=== PATIENT | male | born 1985 | race Hispanic/Latino ===

== ENCOUNTER 2021-09-01 15:26 | Emergency (ER) | payer OTHER ==
[~2021-09-01] VITALS: Ht 172.7 cm; Wt 74.8 kg
[2021-09-01] MEDS ORDERED: CEPHALEXIN500 MG PO (17:51)
[2021-09-01] MEDS ORDERED: HYDROCODON-ACE1 EA10 PO (17:53)
== END 2021-09-01 18:45 | disposition home or self-care (01) ==
LOC: ED 15:26
DX: S66.921A Laceration of unspecified muscle, fascia and tendon at wrist and hand level, right hand, initial encounter (principal); W26.8XXA Contact with other sharp object(s), not elsewhere classified, initial encounter; Y99.0 Civilian activity done for income or pay; Z88.2 Allergy status to sulfonamides; Z23 Encounter for immunization
CPT/HCPCS: 12002; 90471; 90715; 99282-25; A9270